=== PATIENT | female | born 2000 | race Two or more races ===

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

== ENCOUNTER 2018-08-08 15:25 | Emergency (ER) | payer OTHER, MEDICAID ==
[~2018-08-08] VITALS: Ht 160 cm; Wt 52.5 kg
[2018-08-08 15:31] VITALS: BP 108/57
[2018-08-08] MEDS ORDERED: LIDOCAINE JELLY 2%, 30GM TP ONE (16:00)
== END 2018-08-08 16:32 | disposition home or self-care (01) ==
LOC: ED 16:20
DX: K62.5 Hemorrhage of anus and rectum (principal)
CPT/HCPCS: 99283

== ENCOUNTER 2019-11-13 17:44 | Emergency (ER) | payer OTHER ==
[~2019-11-13] VITALS: Ht 162.6 cm; Wt 55.6 kg
--- NOTE | 2019-11-13 19:40 | NUR ---
pt to room from lobby
[2019-11-13] MEDS ORDERED: KETOROLAC 30 MG/1 ML IVPush ONE (20:00)
[2019-11-13] MEDS ORDERED: SODIUM CHLORIDE FLUSH 10ML SYR IVF ONE (20:00)
[2019-11-13] MEDS ORDERED: KETOROLAC 30 MG/1 ML ONE (20:09)
[2019-11-13] MEDS ORDERED: KETOROLAC 30 MG/1 ML IM ONE (20:30)
[2019-11-13 20:39] LABS: BASOPHILS # (AUTO) 0.05 x10^3/uL (0-0.1); BASOPHILS % (AUTO) 0 % (0-1); EOSINOPHILS # (AUTO) 0.03 x10^3/uL (0-0.4); EOSINOPHILS % (AUTO) 0 % (1-7); LYMPHOCYTES # (AUTO) 1.96 x10^3/uL (1-3.4); LYMPHOCYTES % (AUTO) 12 % (22-44); MD NO; MEAN CORPUSCULAR HEMOGLOBIN 26.7 pg (27.0-34.8); MEAN CORPUSCULAR HGB CONC 31.9 g/dL (32.4-35.8); MEAN CORPUSCULAR VOLUME 83.7 fL (80-100); MEAN PLATELET VOLUME 9.3 fL (7.4-10.4); MONOCYTES # (AUTO) 1.05 x10^3/uL (0.2-0.8); MONOCYTES % (AUTO) 6 % (2-9); NEUTROPHILS % (AUTO) 81 % (42-75); PLATELET COUNT 259 x10^3/uL (130-400); RED BLOOD COUNT 4.33 x10^6/uL (3.82-5.3); RED CELL DISTRIBUTION WIDTH 14.5 % (9.6-15.2)
--- NOTE | 2019-11-13 20:41 | NUR ---
pt in nad at this time
[2019-11-13 20:44] LABS: HCT (SEDRATE) 36.2 % (34.6-47.8)
[2019-11-13 20:47] LABS: ALANINE AMINOTRANSFERASE 16 U/L (12-78); ALBUMIN 3.9 g/dL (3.4-5.0); ANION GAP 7 mmol/L (5-15); CALCIUM 8.6 mg/dL (8.5-10.1); CHLORIDE 110 mmol/L (98-107)
[2019-11-13 20:52] LABS: ALKALINE PHOSPHATASE 63 U/L (45-117); BILIRUBIN,TOTAL 0.5 mg/dL (0.2-1.0); CREATINE KINASE, TOTAL 110 U/L (26-192); CREATININE 0.67 mg/dL (0.55-1.02); TOTAL PROTEIN 7.8 g/dL (6.4-8.2)
[2019-11-13 20:58] VITALS: BP 120/67
[2019-11-13 21:18] LABS: MICROSCOPIC NOT IND
[2019-11-13 21:19] LABS: CULTURE INDICATED? NO
[2019-11-15 14:24] LABS: ANA SCREEN POSITIVE (Negative); ANTI-NUCLEAR ANTIBODY PATTERN SPECKLED
== END 2019-11-13 21:39 | disposition home or self-care (01) ==
LOC: ED 20:48
DX: M25.521 Pain in right elbow (principal); M25.522 Pain in left elbow; M25.561 Pain in right knee; M25.562 Pain in left knee; J02.9 Acute pharyngitis, unspecified
CPT/HCPCS: 36415; 80053; 81003; 82550; 84703; 85025; 85651; 86038; 86039; 86140; 96372; 99283; J1885

== ENCOUNTER 2019-11-18 18:48 | Emergency (ER) | payer OTHER ==
[~2019-11-18] VITALS: Ht 160 cm; Wt 55.0 kg
[2019-11-18 19:16] VITALS: BP 118/76
[2019-11-18 20:12] LABS: RAPID INFLUENZA A Negative (Negative); RAPID INFLUENZA B Negative (Negative)
== END 2019-11-18 20:57 | disposition home or self-care (01) ==
LOC: ED 20:45
DX: J06.9 Acute upper respiratory infection, unspecified (principal)
CPT/HCPCS: 71046; 87400; 99284